=== PATIENT | female | born 1965 | race Caucasian/White ===

== ENCOUNTER 2016-08-27 18:53 | Inpatient (IN) | payer MEDICAID ==
[~2016-08-27] VITALS: Ht 157.5 cm; Wt 89.9 kg
[2016-08-27] MEDS ORDERED: LEVO125 PO (19:20)
[2016-08-27 19:51] LABS: ANION GAP 7 mmol/L (8-16); CALCIUM, TOTAL 8.4 mg/dL (8.8-10.5); CARBON DIOXIDE 26 mmol/L (22-29); CHLORIDE 104 mmol/L (98-107); GLOMERULAR FILTR. RATE CALC > 60 mL/min (>60); POTASSIUM 3.5 mmol/L (3.5-5.1); SODIUM SERUM 137 mmol/L (136-145); UREA NITROGEN, BLOOD 16 mg/dL (7-18)
[2016-08-27 19:54] LABS: PROTHROMBIN TIME 10.8 SEC (9.4-11.6)
[2016-08-27 19:56] LABS: ALANINE AMINOTRANSFERASE 33 U/L (12-78); ALBUMIN 3.2 g/dL (3.4-5.0); ASPARTATE AMINOTRANSFERASE 15 U/L (15-37); BILIRUBIN,TOTAL 0.2 mg/dL (0.1-1.0); TOTAL PROTEIN, SERUM 6.9 g/dL (6.4-8.2)
[2016-08-27 20:36] LABS: BASOPHILS % (AUTO) 0.2 % (0.0-2.0); EOSINOPHILS % (AUTO) 0.6 % (1.0-6.0); LYMPHOCYTES # (AUTO) 2.2 K/uL (1.0-4.8); LYMPHOCYTES % (AUTO) 85.2 % (22.0-44.0); MEAN CORPUSCULAR HEMOGLOBIN 31.6 pg (26.0-34.0); MEAN CORPUSCULAR VOLUME 91 fL (80-100); MONOCYTES # (AUTO) 0.1 K/uL (0.1-1.0); MONOCYTES % (AUTO) 4.1 % (2.0-9.0); NEUTROPHILS # (AUTO) 0.3 K/uL (1.8-7.7); NEUTROPHILS % (AUTO) 9.9 % (40.0-70.0); RED BLOOD CELL COUNT(AUTO) 2.02 MIL/uL (4.00-5.20); RED CELL DISTRIBUTION WIDTH 15.2 % (11.5-14.5); WHITE BLOOD COUNT (AUTO) 2.6 K/uL (4.5-11.0)
[2016-08-27 20:38] LABS: HEMATOCRIT 18.3 % (36-46); HEMOGLOBIN 6.4 g/dL (12.0-16.0)
[2016-08-27 20:39] LABS: PLATELET COUNT (AUTO) 7 K/uL (150-450)
[2016-08-27] MEDS ORDERED: ACETAMINOPHEN 500 MG TABLET PO ONE (21:30)
[2016-08-27] MEDS ORDERED: DiphenhydrAMINE HCL 25 MG CAPSULE PO ONE (21:30)
[2016-08-27] MEDS ORDERED: ACETAMINOPHEN 325 MG TABLET PO PRN (21:45)
[2016-08-27] MEDS ORDERED: 0.9% SODIUM CHLORIDE 10 ML SYRINGE IVP PRN (21:45)
[2016-08-27] MEDS ORDERED: ONDANSETRON HCL 4 MG/2 ML VIAL IVP PRN (21:45)
[2016-08-27 22:34] LABS: LACTIC ACID 1.1 mmol/L (0.4-2.0)
[2016-08-27 22:36] LABS: IRON, SERUM 341 mcg/dL (50-175); TOTAL IRON BINDING CAPACITY 382 mcg/dL (250-450)
[2016-08-27 22:42] LABS: B-TYPE NATRIURETIC PEPTIDE 11 pg/mL (0-100); CREATINE KINASE MB 0.6 ng/mL (0-5); CREATINE KINASE, TOTAL 98 U/L (26-192)
[2016-08-27 22:52] LABS: LACTATE DEHYDROGENASE 187 U/L (81-234)
[2016-08-27] MEDS ORDERED: SODIUM CHLORIDE 0.9% 500 ML IV ONE (23:51)
[2016-08-27 23:57] VITALS: BP 107/64
[2016-08-28] VITALS (24 sets, daily range): BP systolic 78–127; BP diastolic 41–91
[2016-08-28] MEDS ORDERED: INFLUENZA VIRUS VACCINE QVS 2016-17 (3YR+)/PF 60 MCG/0.5 ML SYRINGE IM ONE (07:00)
[2016-08-28] MEDS: DOCUSATE SODIUM 100 MG CAPSULE PO SCH ×2 (08:53→20:08)
[2016-08-28 09:17] LABS: BASOPHILS % (AUTO) 0.2 % (0.0-2.0); EOSINOPHILS % (AUTO) 0.7 % (1.0-6.0); HEMATOCRIT 25.2 % (36-46); HEMOGLOBIN 8.7 g/dL (12.0-16.0); LYMPHOCYTES # (AUTO) 2.2 K/uL (1.0-4.8); LYMPHOCYTES % (AUTO) 87.8 % (22.0-44.0); MEAN CORPUSCULAR HGB CONC 34.6 G/dL (31.0-37.0); MEAN CORPUSCULAR VOLUME 90 fL (80-100); MONOCYTES # (AUTO) 0.1 K/uL (0.1-1.0); MONOCYTES % (AUTO) 2.8 % (2.0-9.0); NEUTROPHILS # (AUTO) 0.2 K/uL (1.8-7.7); NEUTROPHILS % (AUTO) 8.5 % (40.0-70.0); PLATELET COUNT (AUTO) 43 K/uL (150-450); RED BLOOD CELL COUNT(AUTO) 2.81 MIL/uL (4.00-5.20); RED CELL DISTRIBUTION WIDTH 14.3 % (11.5-14.5); WHITE BLOOD COUNT (AUTO) 2.5 K/uL (4.5-11.0)
[2016-08-28 09:48] LABS: ALANINE AMINOTRANSFERASE 31 U/L (12-78); ALBUMIN 3.1 g/dL (3.4-5.0); ANION GAP 9 mmol/L (8-16); ASPARTATE AMINOTRANSFERASE 15 U/L (15-37); BILIRUBIN,TOTAL 0.7 mg/dL (0.1-1.0); CALCIUM, TOTAL 8.2 mg/dL (8.8-10.5); CARBON DIOXIDE 27 mmol/L (22-29); CHLORIDE 106 mmol/L (98-107); CREATININE 0.58 mg/dL (0.60-1.30); FERRITIN 414 ng/mL (8-252); GLOMERULAR FILTR. RATE CALC > 60 mL/min (>60); POTASSIUM 3.5 mmol/L (3.5-5.1); SODIUM SERUM 142 mmol/L (136-145); TOTAL PROTEIN, SERUM 6.9 g/dL (6.4-8.2); UREA NITROGEN, BLOOD 8 mg/dL (7-18)
[2016-08-28 09:55] LABS: RBC MORPHOLOGY COMMENT ABNORMAL RBC MORPH
[2016-08-28 10:04] LABS: VITAMIN B12 LEVEL > 2000 pg/mL (211-911)
[2016-08-28] MEDS: ACETAMINOPHEN 325 MG TABLET PO PRN (23:59)
[2016-08-29 05:03] VITALS: BP 110/69
[2016-08-29 07:20] VITALS: BP 106/53
[2016-08-29] MEDS: ACETAMINOPHEN 325 MG TABLET PO PRN (08:44)
[2016-08-29] MEDS: DOCUSATE SODIUM 100 MG CAPSULE PO SCH ×2 (08:44→20:15)
[2016-08-29 12:15] VITALS: BP 123/71
[2016-08-29 15:33] VITALS: BP 115/59
[2016-08-29] MEDS ORDERED: FentaNYL CITRATE-PF 100 MCG/2 ML VIAL ONE ×2 (16:20→17:04)
[2016-08-29] MEDS ORDERED: MIDAZOLAM HCL 2 MG/2 ML VIAL ONE ×2 (16:20→17:04)
[2016-08-29] MEDS ORDERED: LIDOCAINE HCL/PF 1% 30 ML VIAL ONE (16:21)
[2016-08-29] MEDS ORDERED: MIDAZOLAM HCL 2 MG/2 ML VIAL IVP ONE (16:59)
[2016-08-29] MEDS ORDERED: FentaNYL CITRATE-PF 100 MCG/2 ML VIAL IVP ONE (17:09)
[2016-08-29] MEDS ORDERED: GELATIN SPONGE,ABSORBABLE 12-7 MM TP ONE (17:13)
[2016-08-29 18:04] LABS: ALBUMIN (IFE & ELECTROPHOR) 3.4 g/dL (2.9-4.4); ALBUMIN/GLOBULIN RATIO (IFE) 1.1 (0.7-1.7); ALPHA-2 (IFE & PEP) 0.6 g/dL (0.4-1.0); IGG (IMMUNOFIXATION) 1077 mg/dL (700-1600); M-SPIKE (IEP) Not Observed g/dL (Not Observed); TOTAL PROTEIN 6.6 g/dL (6.0-8.5)
[2016-08-29 19:36] VITALS: BP 113/75
[2016-08-29 23:10] VITALS: BP 100/66
[2016-08-30 04:59] VITALS: BP 99/62
[2016-08-30 07:37] LABS: BASOPHILS % (AUTO) 0.3 % (0.0-2.0); EOSINOPHILS % (AUTO) 0.5 % (1.0-6.0); HEMATOCRIT 26.3 % (36-46); LYMPHOCYTES # (AUTO) 2.2 K/uL (1.0-4.8); LYMPHOCYTES % (AUTO) 89.1 % (22.0-44.0); MEAN CORPUSCULAR HEMOGLOBIN 31.1 pg (26.0-34.0); MEAN CORPUSCULAR HGB CONC 34.4 G/dL (31.0-37.0); MEAN CORPUSCULAR VOLUME 90 fL (80-100); MONOCYTES # (AUTO) 0.1 K/uL (0.1-1.0); MONOCYTES % (AUTO) 3.6 % (2.0-9.0); NEUTROPHILS # (AUTO) 0.2 K/uL (1.8-7.7); NEUTROPHILS % (AUTO) 6.5 % (40.0-70.0); PLATELET COUNT (AUTO) 28 K/uL (150-450); RED CELL DISTRIBUTION WIDTH 14.4 % (11.5-14.5); WHITE BLOOD COUNT (AUTO) 2.5 K/uL (4.5-11.0)
[2016-08-30 08:16] VITALS: BP 100/66
[2016-08-30] MEDS: DOCUSATE SODIUM 100 MG CAPSULE PO SCH (09:00)
[2016-08-30 11:46] VITALS: BP 102/59
[2016-08-30] MEDS ORDERED: MULTIVITAMINS WITH MINERALS, THERAPEUTIC TABLET PO SCH (12:15)
== END 2016-08-30 14:15 | disposition home or self-care (01) | DRG 810 ==
LOC: EMS 18:58 → 6N 22:14
PROVIDERS: ADMIT Internal Medicine; ATTEND Internal Medicine
PROC: 30233R1 Transfusion of Nonautologous Platelets into Peripheral Vein, Percutaneous Approach (ICD-10-PCS; 2016-08-28)
PROC: 30233N1 Transfusion of Nonautologous Red Blood Cells into Peripheral Vein, Percutaneous Approach (ICD-10-PCS; 2016-08-28)
PROC: 07DR3ZX Extraction of Iliac Bone Marrow, Percutaneous Approach, Diagnostic (ICD-10-PCS; principal; 2016-08-29)
DX: D61.818 Other pancytopenia (principal); E03.9 Hypothyroidism, unspecified; E66.9 Obesity, unspecified; Z68.36 Body mass index [BMI] 36.0-36.9, adult; Z79.899 Other long term (current) drug therapy; Z98.890 Other specified postprocedural states; Z28.21 Immunization not carried out because of patient refusal
CPT/HCPCS: 77012; 82271; 82607; 82728; 82746; 82784; 83540; 83550; 83605; 83615; 83883; 84155; 84165; 84439; 84443; 85045; 86334; 86850; 86900; 86901; 86920; 88304; 88313; 93005; 99285; J2250; J3010; J3490; J7040; P9016; P9035